=== PATIENT | female | born 1985 | race Hispanic/Latino ===

== ENCOUNTER 2019-10-14 14:51 | Outpatient (CLI) | payer OTHER ==
--- NOTE | 2019-10-14 15:53 | ULT ---
EXAM: OB ultrasound COMPARISON: None HISTORY: female. Evaluate size, dates, and anatomy. Evaluate cervical length. TECHNIQUE: Multiplanar grayscale and color Doppler transabdominal sonographic images are obtained. FINDINGS: There is a single intrauterine gestation in cephalic presentation. Cardiac Doppler demonstr ates heart tones with a heart rate of 147 beats per minute. The placenta is located anteriorly without evidence of placenta previa. There is a normal amount of amniotic fluid with an am niotic fluid index of 12.4 centimeters. The cervical length based on transabdominal imaging measures 4.5 centimeters. biometry measurements: BPD 4.96 cm -- 21 weeks HC 18.44 cm -- 20 weeks 6 days AC 14.41 cm -- 19 weeks 5 days FL 3.16 cm -- 19 weeks 6 days The estimated gestational age by ultrasound is 20 weeks 2 days with an BISMARK on02/29/2020. Gestational a ge by the last menstrual period is 21 weeks 2 days. The estimated weight by ultrasound is 321 g (11 ounces). This represents 3 percentile for weight. A 4 chambered heart is visualized. The cerebellum, visualized portions of the spine, kidneys, u rinary bladder, and cord insertion demonstrate a normal sonographic appearance. A three-vessel cord is not visualized, but there is flow on either side of the urinary bladder sugges ting a three-vessel cord.. No anomalies are seen. IMPRESSION: 1. Single intrauterine gestation in cephalic presentation with heart tones documented. Estimat ed gestational age by ultrasound is 20 weeks 2 days. 2. Estimated weight is 321 g (11 ounces). 3. Amniotic fluid index is 12.4 centimeters. 4. Cervical length measures 4.5 cm.
== END 2019-10-14 14:52 | disposition home or self-care (01) ==
LOC: SCSULT 14:51
PROVIDERS: ATTEND Family Medicine
DX: O09.512 Supervision of elderly primigravida, second trimester (principal); Z3A.20 20 weeks gestation of pregnancy
CPT/HCPCS: 76805

== ENCOUNTER 2020-02-18 13:06 | Outpatient (CLI) | payer OTHER ==
[2020-02-19 12:46] LABS: SARS-CoV-2 MS2 Positive; SARS-CoV-2 N Gene Negative; SARS-CoV-2 S Gene Negative; SARS-CoV-2 by NAA Not Detected (NotDetected); SARS-CoV-2 orf1ab Negative
== END 2020-02-18 13:07 | disposition home or self-care (01) ==
LOC: LABSCS 13:06
PROVIDERS: ATTEND Family Medicine
DX: Z20.828 Contact with and (suspected) exposure to other viral communicable diseases (principal)
CPT/HCPCS: 87635; U0003

== ENCOUNTER 2020-02-21 19:15 | Inpatient (IN) | payer MEDICAID, OTHER ==
[~2020-02-21 19:15] MED LIST: Bupivacaine/Epinephrine 0.25% 30 ML VIAL ONE; EPHEDRINE 25 MG/5 ML SYRINGE ONE
[2020-02-21] MEDS ORDERED: Promethazine HCl 25 MG/ML VIAL IM PRN (22:12)
[2020-02-21] MEDS ORDERED: Butorphanol Tartrate 1 MG/ML VIAL SLOW IVP PRN (22:12)
[2020-02-21] MEDS ORDERED: HYDROcodone/Acetaminophen 5/325 mg Tablet PO PRN (22:12)
[2020-02-21] MEDS ORDERED: Diphenoxylate HCl/Atropine Tablet PO PRN (22:12)
[2020-02-21] MEDS ORDERED: Ondansetron PF 4 MG/2 ML Vial IVP PRN (22:12)
[2020-02-21] MEDS ORDERED: Ibuprofen 800 MG TAB PO PRN (22:12)
[2020-02-21] MEDS ORDERED: NS / Oxytocin 40 units/1000ml 1,000 ML IV PRN (22:12)
[2020-02-21] MEDS ORDERED: Lidocaine 1% (PF) 30 ML VIAL SC PRN (22:12)
[2020-02-21] MEDS ORDERED: Methylergonovine 0.2 MG/ML VIAL IM PRN (22:12)
[2020-02-21] MEDS ORDERED: hydrALAZINE 20 MG/ML VIAL SLOW IVP PRN (22:12)
[2020-02-21] MEDS ORDERED: Carboprost 250 MCG/ML AMP IM PRN (22:12)
[2020-02-21] MEDS ORDERED: Misoprostol 200 MCG TAB PR PRN (22:12)
[2020-02-21] MEDS ORDERED: NS w/ Oxytocin 10 units 500 ML IV SCH ×2 (22:15)
[2020-02-21] MEDS: Lactated Ringer's 1,000 ML IV SCH (22:38)
[2020-02-21 22:48] LABS: Hemoglobin 12.4 g/dL (12.0-16.0); Mean Corpuscular HGB CONC 34.4 g/dL (32.0-36.0); Mean Corpuscular Hemoglobin 31.6 pg (27.0-31.0); Mean Corpuscular Volume 91.9 fL (78.0-98.0); Platelet Count 247 thou/uL (130-400); RBC Distribution Width 11.9 % (11.5-14.5); Red Blood Cell (RBC) Count 3.91 mill/uL (4.20-5.40); White Blood Cell (WBC) Count 6.6 thou/uL (4.8-10.8)
[2020-02-21] MEDS: Misoprostol 100 MCG TAB VAG SCH (23:11)
[2020-02-21 23:22] VITALS: BMI 26.8
[2020-02-21 23:25] LABS: HBSAg Index 0.15 S/CO (0-0.99); Hep B Surf Ag Non-Reactive S/CO (NonReactive); Syphilis Antibody Nonreactive (Nonreactive); Syphilis Antibody Index 0.04 S/CO (<1.00 Non-Reactive)
[2020-02-22] MEDS: Misoprostol 100 MCG TAB VAG SCH ×2 (04:29→08:45)
[2020-02-22] MEDS ORDERED: Fentanyl 4 mcg/Bup 0.1% Cadd 100 ML ONE (09:48)
[2020-02-22] MEDS: Lactated Ringer's 1,000 ML IV SCH ×3 (10:38→14:47)
[2020-02-22] MEDS ORDERED: diphenhydrAMINE 50 MG/ML VIAL IVP PRN (11:05)
[2020-02-22] MEDS ORDERED: Acetaminophen 325 MG TAB PO PRN (11:05)
[2020-02-22] MEDS ORDERED: Ondansetron PF 4 MG/2 ML Vial IVP PRN ×2 (11:05→17:53)
[2020-02-22] MEDS ORDERED: Promethazine HCl 25 MG/ML VIAL IM PRN ×2 (11:05→17:53)
[2020-02-22] MEDS ORDERED: Lactated Ringer's 500 ML IV PRN (11:05)
[2020-02-22] MEDS ORDERED: Naloxone HCl 0.4 mg/ml Vial IVP PRN ×2 (11:05)
[2020-02-22] MEDS ORDERED: EPHEDRINE 25 MG/5 ML SYRINGE SLOW IVP PRN (11:05)
[2020-02-22] MEDS ORDERED: Fentanyl 4 mcg/Bupivacaine 0.1% Cassette 100 ML EPIDURAL SCH (11:15)
[2020-02-22] MEDS ORDERED: Communication Order-Pharmacy FS PRN (11:15)
[2020-02-22] MEDS ORDERED: NS / Oxytocin 40 units/1000ml 1,000 ML ONE (16:25)
[2020-02-22] MEDS ORDERED: Lidocaine 1% (PF) 30 ML VIAL ONE (16:25)
[2020-02-22] MEDS ORDERED: hydrALAZINE 20 MG/ML VIAL SLOW IVP PRN (17:53)
[2020-02-22] MEDS ORDERED: NS / Oxytocin 40 units/1000ml 1,000 ML IV SCH (17:53)
[2020-02-22] MEDS ORDERED: Milk Of Magnesia 30 ML UDCUP PO PRN (17:53)
[2020-02-22] MEDS ORDERED: Lanolin Ointment 7 GM TUBE TOP PRN (17:53)
[2020-02-22] MEDS ORDERED: diphenhydrAMINE 25 MG CAP PO PRN (17:53)
[2020-02-22] MEDS ORDERED: Bisacodyl 10 MG SUPP PR PRN (17:53)
[2020-02-22] MEDS ORDERED: HYDROcodone/Acetaminophen 5/325 mg Tablet PO PRN ×2 (17:53)
[2020-02-22] MEDS: Ibuprofen 800 MG TAB PO SCH (22:43)
[2020-02-22] MEDS: Docusate Calcium (SURFAK) 240 MG CAP PO SCH (22:43)
[2020-02-23] MEDS: Ibuprofen 800 MG TAB PO SCH ×3 (05:33→21:16)
[2020-02-23 06:04] LABS: Hemoglobin 10.8 g/dL (12.0-16.0); Mean Corpuscular HGB CONC 33.3 g/dL (32.0-36.0); Mean Corpuscular Hemoglobin 31.1 pg (27.0-31.0); Mean Corpuscular Volume 93.3 fL (78.0-98.0); Platelet Count 227 thou/uL (130-400); Red Blood Cell (RBC) Count 3.49 mill/uL (4.20-5.40); White Blood Cell (WBC) Count 11.4 thou/uL (4.8-10.8)
[2020-02-23] MEDS ORDERED: HYDROcodone/Acetaminophen 5/325 mg Tablet PO PRN (07:54)
[2020-02-23] MEDS: Ferrous Sulfate 325 MG TAB PO SCH ×2 (08:02→16:26)
[2020-02-23] MEDS: Misoprostol 100 MCG TAB VAG SCH (08:03)
[2020-02-23] MEDS: Docusate Calcium (SURFAK) 240 MG CAP PO SCH ×2 (08:28→21:16)
[2020-02-23] MEDS: Prenatal Vitamin 1 TAB PO SCH (08:28)
[2020-02-23] MEDS ORDERED: Adacel (T-DAP) 0.5 ML SYRINGE IM ONE (09:00)
[2020-02-23] MEDS ORDERED: Milk Of Magnesia 30 ML UDCUP PO SCH (21:00)
[2020-02-24 05:58] VITALS: TEMP 98
[2020-02-24] MEDS: Ibuprofen 800 MG TAB PO SCH ×2 (06:26→13:32)
[2020-02-24 08:05] VITALS: BP 94/54
[2020-02-24] MEDS: Prenatal Vitamin 1 TAB PO SCH (08:21)
[2020-02-24] MEDS: Docusate Calcium (SURFAK) 240 MG CAP PO SCH (08:21)
[2020-02-24] MEDS: Ferrous Sulfate 325 MG TAB PO SCH ×2 (08:24→13:57)
== END 2020-02-24 17:45 | disposition home or self-care (01) | DRG 807 ==
LOC: L&D 21:40 → 3SW 02-22 22:35
PROVIDERS: ADMIT Family Medicine; ATTEND Family Medicine
PROC: 10E0XZZ Delivery of Products of Conception, External Approach (ICD-10-PCS; principal; 2020-02-22)
PROC: 10907ZC Drainage of Amniotic Fluid, Therapeutic from Products of Conception, Via Natural or Artificial Opening (ICD-10-PCS; 2020-02-22)
PROC: 3E0P7VZ Introduction of Hormone into Female Reproductive, Via Natural or Artificial Opening (ICD-10-PCS; 2020-02-22)
PROC: 3E033VJ Introduction of Other Hormone into Peripheral Vein, Percutaneous Approach (ICD-10-PCS; 2020-02-22)
PROC: 0W8NXZZ Division of Female Perineum, External Approach (ICD-10-PCS; 2020-02-22)
DX: O80 Encounter for full-term uncomplicated delivery (principal); Z37.0 Single live birth; Z3A.40 40 weeks gestation of pregnancy; Z11.59 Encounter for screening for other viral diseases
CPT/HCPCS: 36415; 51702; 85027; 86780; 86850; 86900; 86901; 87340; J2001; J2590

== ENCOUNTER 2021-05-22 14:32 | Outpatient (CLI) | payer MEDICAID | END 2021-05-22 14:33 | disposition home or self-care (01) | LOC: BICULT 14:32 | PROVIDERS: ATTEND Family Medicine | DX: Z34.82 Encounter for supervision of other normal pregnancy, second trimester (principal); Z3A.21 21 weeks gestation of pregnancy | CPT/HCPCS: 76805 ==